=== PATIENT | female | born 1970 | race Caucasian/White ===

== ENCOUNTER 2019-03-19 22:30 | Inpatient (IN) ==
[2019-03-19] MEDS ORDERED: HYDROmorphone INJ 0.5 MG/0.5 ML SYR IV STA (23:08)
[2019-03-19] MEDS ORDERED: ONDANSETRON INJ 2 MG/ML 2 ML VIAL IV STA (23:08)
[2019-03-19] MEDS ORDERED: SODIUM CHLORIDE 0.9% 1000ML 1,000 ML IV SCH (23:15)
[2019-03-19 23:38] LABS: Basophils # (auto) 0.02 K/uL (0-0.2); Basophils % (auto) 0.2 %; Eosinophils # (auto) 0.04 K/uL (0-0.5); Eosinophils % (auto) 0.4 %; Hematocrit (blood only) 38.1 % (37-47); Hemoglobin 12.9 g/dL (12.0-16.0); Immature Granulocytes # (auto) 0.03 K/uL (0.00-0.02); Immature Granulocytes % (auto) 0.3 %; Lymphocytes # (auto) 2.24 K/uL (1.2-3.4); Lymphocytes % (auto) 20.3 %; Mean Corpuscular Hemoglobin 32.9 pg (25-34); Mean Corpuscular Hgb Conc 33.9 g/dL (32-36); Mean Corpuscular Volume 97.2 fL (80-100); Mean Platelet Volume 9.6 fL (7.4-10.4); Monocytes # (auto) 0.64 K/uL (0.11-0.59); Monocytes % (auto) 5.8 %; Neutrophils # (auto) 8.09 K/uL (1.4-6.5); Platelet Count 213 K/uL (130-400); RDW Coefficient of Variation 12.6 % (11.5-14.5); RDW Standard Deviation 44.9 fL (36.4-46.3); Red Blood Count 3.92 M/uL (4.2-5.4); White Blood Count 11.06 K/uL (4.8-10.8)
[2019-03-19 23:47] LABS: Partial Thromboplastin Ratio 0.9; Partial Thromboplastin Time 25.3 Seconds (21.0-31.0)
[2019-03-20] LABS: Alanine Aminotransferase 16 U/L (12-78); Albumin Level 3.5 gm/dl (3.4-5.0); Aspartate Aminotransferase 13 U/L (15-37); BUN Creatinine Ratio 14.8 (10-20); Blood Urea Nitrogen 13 mg/dl (7-18); Calcium 9.3 mg/dl (8.5-10.1); Carbon Dioxide 26 mmol/L (21-32); Chloride 108 mmol/L (98-107); Est GFR (African American) 90.7; Est GFR (Non-African American) 78.2; Glucose 95 mg/dl (70-99); Potassium 3.8 mmol/L (3.5-5.1); Sodium 139 mmol/L (136-145)
[2019-03-20 00:05] LABS: Albumin Globulin Ratio 0.9 (0.9-2); Alkaline Phosphatase 46 U/L (45-117); Bilirubin,Total 0.6 mg/dl (0.2-1); Globulin 4.1 gm/dl (2.5-4.0); Total Protein 7.6 gm/dl (6.4-8.2); Troponin I < 0.015 ng/ml (0-0.045)
[2019-03-20 00:41] LABS: Appearance Urine Clear (Clear); Bacteria Urine Automated 1+ (Negative); Bilirubin Urine Negative (Negative); Blood Urine 1+ (Negative); Color Urine Yellow; Epithelial Cell Urine Auto >30 /lpf (0-5); Glucose Urine UA Negative (Negative); Ketones Urine Negative (Negative); Leukocyte Esterase Urine Negative (Negative); Nitrite Urine Negative (Negative); Protein Urine Negative (Negative); RBC Urine Automated 0-4 /hpf (0-4); Urobilinogen Urine Negative (Negative); pH Urine 6.5 (4.5-7.5)
[2019-03-20] MEDS ORDERED: OPTIRAY 320 125ml IV PRN (01:38)
[2019-03-20] MEDS ORDERED: HYDROmorphone INJ 1 MG/ML SYRINGE IV STA ×2 (01:58→16:33)
[2019-03-20] MEDS ORDERED: LORazepam 0.5 MG/1 ML VIAL IV STA (02:01)
[2019-03-20] MEDS ORDERED: KETOROLAC TROMETHAMINE 15 MG/ML VIAL IV STA (02:01)
[2019-03-20] MEDS ORDERED: HEPARIN SOD 5,000 UNIT/0.5 ML VIAL ONE (03:00)
[2019-03-20] MEDS: HEPARIN SODIUM/DEXTROSE 25,000 UNITS/500 ML BAG IV SCH (03:05)
--- NOTE | 2019-03-20 03:07 | History & Physical Report ---
Date of Service March 20, 2019 Assessment & Plan (1) Bilateral pulmonary embolism: Possibly provoked by OCP Rule out lower extremity clot as source Medical telemetry IV heparin Defer discussion regarding oral agent for home between patient and AM provider. (Patient interested in NOAC.) LE venous Dopplers rule out DVT Stop OCP, alternative form of contraception to be discussed with PCP on follow- up DVT prophylaxis. Heparin Full code History of Present Illness Chief Complaint: Chest pain, S OB Primary Care Provider: Elke Mcneill MD History obtained from patient and records. No significant medical history. 2 days history of midsternal, subcostal pleuritic pain with shortness of breath and radiation to the back. No fever, no chills, no cough. No leg swelling. No recent travel/immobilization. At the ER, IV heparin started for pulmonary embolism on CT. No prior episodes, no known family history. Medical History as above Surgical History : Breast implant surgery, gynecologic procedures Family History : Breast cancer, DM Personal/Social history : Non-smoker, occasional EtOH intake, hospital employee Allergies Allergy/AdvReac Type Severity Reaction Status Date / Time No Known Allergies Allergy Unknown Verified 03/19/19 22:59 Home Medications Home Medications Medication Instructions Recorded Confirmed Type norgestrel-ethinyl estradiol 1 tab PO DAILY 03/19/19 03/19/19 History [Destiney (28)] Past Med/Surg History Medical History No pertinent past medical history Surgical History H/O eye surgery Family History Other No pertinent family history Social History Preferred Language: Uzbek Communication Ability: Effective Spa Manager/Esthetician Required: No Beliefs That Will Affect Care: None Current Living Situation: Spouse and Family Other Information That Helps Us Care for You: No Feels Safe at Home: Yes Safety Concerns: Feels Safe At This Time Smoking Status: Former smoker Tobacco Type: cigarettes ; Do You Dip or Chew Tobacco: No ; Second Hand Exposure: No ; Tobacco Cessation Education Requested by Patient: No Hx Alcohol Use: Yes Alcohol type: beer, wine and hard liquor Hx Substance Use: No Review of Systems Review of Systems: As per HPI, all 10 systems reviewed, all other ROS negative Physical Exam Physical Exam: GENERAL: Slightly uncomfortable, slightly anxious, looks younger for stated age, no respiratory distress SKIN: Normal color, warm HEENT: [place] palpebral conjunctivae, no ptosis, dry buccal mucosa NECK : Supple, no tenderness CHEST : Decreased breath sounds, no tenderness HEART : RRR, no obvious murmurs ABDOMEN: Soft, nontender EXTREMITIES : No LE swelling/tenderness, no other conspicuous deformities noted NEUROLOGIC : Coherent, no facial asymmetry, no other gross focality Results & Data Vital Signs (Past 12 Hours) Vital Signs Temp Pulse Pulse Resp BP BP Pulse Ox 03/20/19 03:03 88 18 115/75 95 03/20/19 02:00 95 H 23 132/85 98 03/20/19 01:30 86 21 116/78 94 03/20/19 01:00 84 17 111/73 96 03/20/19 00:57 83 18 97 03/20/19 00:56 88 22 115/70 97 03/20/19 00:30 87 19 96 03/20/19 00:08 96 03/19/19 23:30 91 H 23 99 03/19/19 23:22 94 H 24 98 03/19/19 23:07 91 H 22 97 03/19/19 22:34 36.6 C 129 H 20 160/85 H 99 Laboratory Results Laboratory Results WBC 11.06 K/uL (4.8-10.8) H 03/19/19 23:26 RBC 3.92 M/uL (4.2-5.4) L 03/19/19 23:26 Hgb 12.9 g/dL (12.0-16.0) 03/19/19 23:26 Hct 38.1 % (37-47) 03/19/19 23:26 MCV 97.2 fL (80-100) 03/19/19 23:26 MCH 32.9 pg (25-34) 03/19/19 23:26 MCHC 33.9 g/dL (32-36) 03/19/19 23:26 RDW Std Deviation 44.9 fL (36.4-46.3) 03/19/19 23:26 RDW Coeff of Alecia 12.6 % (11.5-14.5) 03/19/19 23:26 Plt Count 213 K/uL (130-400) 03/19/19 23:26 MPV 9.6 fL (7.4-10.4) 03/19/19 23:26 Immature Gran % (Auto) 0.3 % 03/19/19 23:26 Neut % (Auto) 73.0 % 03/19/19 23:26 Lymph % (Auto) 20.3 % 03/19/19 23:26 [place] % (Auto) 5.8 % 03/19/19 23:26 Eos % (Auto) 0.4 % 03/19/19 23:26 Baso % (Auto) 0.2 % 03/19/19 23: Immature Gran # (Auto) 0.03 K/uL (0.00-0.02) H 03/19/19 23:26 Neut # (Auto) 8.09 K/uL (1.4-6.5) H 03/19/19 23:26 Lymph # (Auto) 2.24 K/uL (1.2-3.4) 03/19/19 23:26 [place] # (Auto) 0.64 K/uL (0.11-0.59) H 03/19/19 23:26 Eos # (Auto) 0.04 K/uL (0-0.5) 03/19/19 23: Baso # (Auto) 0.02 K/uL (0-0.2) 03/19/19 23:26 PT 10.0 Seconds (9.0-12.0) 03/19/19 23: INR 1.0 (0.9-1.1) 03/19/19 23:26 APTT 25.3 Seconds (21.0-31.0) 03/19/19 23: PTT Ratio 0.9 03/19/19 23:26 Sodium 139 mmol/L (136-145) 03/19/19 23:26 Potassium 3.8 mmol/L (3.5-5.1) 03/19/19 23:26 Chloride 108 mmol/L (98-107) H 03/19/19 23:26 Carbon Dioxide 26 mmol/L (21-32) 03/19/19 23:26 Anion Gap 4.0 (3-11) 03/19/19 23:26 BUN 13 mg/dl (7-18) 03/19/19 23:26 Creatinine 0.87 mg/dl (0.6-1.2) 03/19/19 23:26 Est Cr Clr Drug Dosing Not Reportable 03/19/19 23:26 Est GFR ( Amer) 90.7 03/19/19 23:26 Est GFR (Non-Af Amer) 78.2 03/19/19 23:26 BUN/Creatinine Ratio 14.8 (10-20) 03/19/19 23:26 Glucose 95 mg/dl (70-99) 03/19/19 23:26 Calcium 9.3 mg/dl (8.5-10.1) 03/19/19 23:26 Magnesium 2.0 mg/dl (1.8-2.4) 03/19/19 23:26 Total Bilirubin 0.6 mg/dl (0.2-1) 03/19/19 23:26 AST 13 U/L (15-37) L 03/19/19 23:26 ALT 16 U/L (12-78) 03/19/19 23:26 Alkaline Phosphatase 46 U/L (45-117) 03/19/19 23:26 Troponin I < 0.015 ng/ml (0-0.045) 03/19/19 23:26 Total Protein 7.6 gm/dl (6.4-8.2) 03/19/19 23:26 Albumin 3.5 gm/dl (3.4-5.0) 03/19/19 23:26 Globulin 4.1 gm/dl (2.5-4.0) H 03/19/19 23:26 Albumin/Globulin Ratio 0.9 (0.9-2) 03/19/19 23:26 Urine Color Yellow 03/20/19 00:06 Urine Appearance Clear (Clear) 03/20/19 00:06 Urine pH 6.5 (4.5-7.5) 03/20/19 00:06 Ur Specific [place] 1.030 (1.000-1.030) 03/20/19 00:06 Urine Protein Negative (Negative) 03/20/19 00:06 Urine Glucose (UA) Negative (Negative) 03/20/19 00:06 Urine Ketones Negative (Negative) 03/20/19 00:06 Urine Blood 1+ (Negative) H 03/20/19 00:06 Urine Nitrite Negative (Negative) 03/20/19 00:06 Urine Bilirubin Negative (Negative) 03/20/19 00:06 Urine Urobilinogen Negative (Negative) 03/20/19 00:06 Ur Leukocyte Esterase Negative (Negative) 03/20/19 00:06 Urine WBC (Auto) 1-5 /hpf (0-5) 03/20/19 00:06 Urine RBC (Auto) 0-4 /hpf (0-4) 03/20/19 00:06 U Hyaline Cast (Auto) 1-5 /lpf (0-5) 03/20/19 00:06 U Epithel Cells (Auto) >30 /lpf (0-5) H 03/20/19 00:06 Urine Bacteria (Auto) 1+ (Negative) H 03/20/19 00:[address] chest initial read bilateral breast prostheses, negative mediastinal/axillary lymphadenopathy. Subcentimeter left greater than right hilar lymph nodes. Main pulmonary artery normal caliber. Right greater than the left lower lung pulmonary embolus. No RV strain. EKG as per my interpretation: Rate 95, normal axis, no ischemia, low voltage
[2019-03-20] MEDS ORDERED: ACETAMINOPHEN 325 MG TAB PO PRN (03:46)
[2019-03-20] MEDS ORDERED: LORazepam 0.25 MG/0.5 ML VIAL IV PRN (03:46)
[2019-03-20] MEDS ORDERED: MoRPHine SULFATE 2 MG/ML CARP IV PRN (03:46)
[2019-03-20] MEDS ORDERED: NSS + 20MEQ KCL 20 MEQ/1,000 ML BAG IV ONE (03:46)
[2019-03-20] MEDS: PROMETHAZINE HCL 12.5 MG in SODIUM CHLORIDE 0.9% 50 ML IV PRN ×3 (04:01→16:12)
--- NOTE | 2019-03-20 07:10 | Ultrasound Report ---
BILATERAL LOWER EXTREMITY VENOUS DOPPLER HISTORY: Pulmonary embolus. Evaluate for DVT. COMPARISON STUDY: None. FINDINGS: There is normal compressibility, flow, and augmentation within the bilateral lower extremit y deep venous systems. IMPRESSION: No DVT within the right or left lower extremity. Electronically signed by: Palomo Patel M.D. 03/20/2019 7:08 AM
--- NOTE | 2019-03-20 07:21 | Emergency Department Note ---
Entered by Fausto Smalls acting as a scribe for Teresa Rodríguez MD History of Present Illness General Chief complaint: Rib Injury/Pain Stated complaint: SEVERE RIB PAIN, SIDE PAIN Time Seen by Provider: 03/19/19 23:06 Source: patient History of Present Illness Onset (ago): day(s) (last night) Location: chest (and side) and right Severity: severe Pain Consistency: + constant Maximum Pain Intensity: 5 Exacerbated By: + movement and + other (deep breathing) Associated symptoms: + denies other symptoms (abdominal pain, swelling in her legs, pain in her legs) The patient is a 49 y/o female who presents to the ED w/ CC of constant, severe, right sided chest/side pain beginning last night. The patient states her symptoms started in the middle of the night last night and worsen with deep breathing. She reports she tried taking ibuprofen to help her sleep. The patient notes today at work she was not able to yawn or breathe in deeply because her symptoms increased. She states she went to sleep this evening and then rolled over in bed. The patient reports her symptoms increased severely and moved from her right inner chest to the bottom of her right rib cage. She notes she does take control. She denies abdominal pain, swelling in her legs, pain in her legs, a pertinent past medical history, recent long trips, and a history of smoking. The patient denies increased pain when she touches her side. She notes her PCP is with [facility]. 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 and A total of 10 systems reviewed and were otherwise negative Physical Exam Vital Signs Vital Signs - 24 hr 03/19/19 22:31 03/19/19 22:34 03/19/19 23:07 Temperature 36.6 C Temperature Source Oral Pulse Rate 129 H 91 H Pulse Rate [Finger] Pulse Rate from SpO2 Sensor Pulse Rhythm Regular Respiratory Rate 20 22 Blood Pressure 160/85 H Blood Pressure [Right Arm] Blood Pressure Mean 110 Blood Pressure Mean [Right Arm] Blood Pressure Position Sitting Pulse Oximetry 99 97 Oxygen Delivery Method Room Air Room Air Room Air Sepsis Recent Fever Within 48 Hours No Sepsis New/Unexplained Change in Mental Status No Sepsis Action Taken by Nursing No Action Required 03/19/19 23:22 03/19/19 23:30 03/20/19 00:08 Temperature Temperature Source Pulse Rate 94 H 91 H Pulse Rate [Finger] Pulse Rate from SpO2 Sensor 96 H 91 H 82 Pulse Rhythm Respiratory Rate 24 23 Blood Pressure Blood Pressure [Right Arm] Blood Pressure Mean Blood Pressure Mean [Right Arm] Blood Pressure Position Pulse Oximetry 98 99 96 Oxygen Delivery Method Sepsis Recent Fever Within 48 Hours Sepsis New/Unexplained Change in Mental Status Sepsis Action Taken by Nursing 03/20/19 00:30 03/20/19 00:56 03/20/19 00:57 Temperature Temperature Source Pulse Rate 87 88 83 Pulse Rate [Finger] Pulse Rate from SpO2 Sensor 89 87 84 Pulse Rhythm Respiratory Rate 19 22 18 Blood Pressure 115/70 Blood Pressure [Right Arm] Blood Pressure Mean 81 Blood Pressure Mean [Right Arm] Blood Pressure Position Pulse Oximetry 96 97 97 Oxygen Delivery Method Sepsis Recent Fever Within 48 Hours Sepsis New/Unexplained Change in Mental Status Sepsis Action Taken by Nursing 03/20/19 01:00 03/20/19 01:30 03/20/19 02:00 Temperature Temperature Source Pulse Rate 84 86 95 H Pulse Rate [Finger] Pulse Rate from SpO2 Sensor 86 86 98 H Pulse Rhythm Respiratory Rate 17 21 23 Blood Pressure 111/73 116/78 132/85 Blood Pressure [Right Arm] Blood Pressure Mean 82 87 101 Blood Pressure Mean [Right Arm] Blood Pressure Position Pulse Oximetry 96 94 98 Oxygen Delivery Method Sepsis Recent Fever Within 48 Hours Sepsis New/Unexplained Change in Mental Status Sepsis Action Taken by Nursing 03/20/19 02:30 03/20/19 03:00 03/20/19 03:03 Temperature Temperature Source Pulse Rate 81 86 Pulse Rate [Finger] 88 Pulse Rate from SpO2 Sensor 82 86 Pulse Rhythm Respiratory Rate 16 13 18 Blood Pressure 107/74 115/75 Blood Pressure [Right Arm] 115/75 Blood Pressure Mean 77 84 Blood Pressure Mean [Right Arm] 88 Blood Pressure Position Pulse Oximetry 96 96 95 Oxygen Delivery Method Room Air Sepsis Recent Fever Within 48 Hours Sepsis New/Unexplained Change in Mental Status Sepsis Action Taken by Nursing Vital signs reviewed. General: Well-appearing 49 y/o female, splinting the lower ribs - right greater than left. HEENT: No scleral icterus, PERRLA, neck supple. Atraumatic. Cardiovascular: Tachycardic rate and regular rhythm, no extra sounds. Pulmonary: Clear to auscultation bilaterally, normal work of breathing. Pain with deep inspiration. Examination limited secondary to splinting. Abdomen: Soft, nontender, nondistended, positive bowel sounds. Musculoskeletal: Atraumatic, no peripheral edema. Neurologic: Patient awake alert and oriented x 3 Skin: Warm, dry, no rash Course Course 2308: Past medical records reviewed. The patient was evaluated in room A12B. A complete history and physical exam was performed. 0151: Upon reevaluation, the patient is resting comfortably. I discussed laboratory and radiographic results with her. She verbalized agreement of the treatment plan. The patient will be evaluated for further management and care. 0216: I reviewed the patient's case with Dr. Conway, [facility] Hospitalist. He will evaluate the patient for further management. Administered Medications Discontinued Medications Apixaban (Eliquis) 10 mg PO BID DENISE Stop: 03/28/19 09:01 Last Admin: 03/22/19 07:55 Dose: 10 mg Documented by: [id number] Admin: 03/21/19 21:00 Dose: 10 mg Documented by: [id number] Heparin Sodium (Porcine) (Heparin Sodium (Porcine)) Confirm Administered Dose 5,000 units .ROUTE .STK-MED ONE Stop: 03/20/19 03:01 Last Admin: 03/20/19 03:04 Dose: 5,000 units Documented by: [id number] Cosigned by: [id number] Heparin Sodium/Dextrose () 1 ea IV NOW STA; Protocol Stop: 03/20/19 01:59 Last Admin: 03/20/19 03:07 Dose: Not Given Documented by: [id number] Hydromorphone HCl (Dilaudid) 0.5 mg IV NOW Stop: 03/19/19 23:09 Last Admin: 03/19/19 23:33 Dose: 0.5 mg Documented by: [id number] Hydromorphone HCl (Dilaudid) 1 mg IV NOW Stop: 03/20/19 01:59 Last Admin: 03/20/19 02:38 Dose: 1 mg Documented by: [id number] Hydromorphone HCl (Dilaudid) 0.5 mg IV NOW Stop: 03/20/19 11:52 Last Admin: 03/20/19 11:58 Dose: 0.5 mg Documented by: [id number] Hydromorphone HCl (Dilaudid) 1 mg IV Q4H PRN PRN Reason: Pain Stop: 04/03/19 13:02 Last Admin: 03/20/19 14:13 Dose: 1 mg Documented by: [id number] Hydromorphone HCl (Dilaudid) 1 mg IV NOW STA Stop: 03/20/19 16:34 Last Admin: 03/20/19 16:41 Dose: 1 mg Documented by: [id number] Hydromorphone HCl (Dilaudid) 2 mg IV Q3H PRN PRN Reason: Pain Stop: 04/03/19 13:02 Last Admin: 03/21/19 10:44 Dose: 2 mg Documented by: [id number] Admin: 03/21/19 03:06 Dose: 2 mg Documented by: [id number] Admin: 03/20/19 22:31 Dose: 2 mg Documented by: [id number] Admin: 03/20/19 18:50 Dose: 2 mg Documented by: [id number] Sodium Chloride (Nss 1000ml) 1,000 mls @ 999 mls/hr IV .Q1H1M DENISE Stop: 03/20/19 00:15 Last Infusion: 03/20/19 03:11 Dose: 0 mls/hr Documented by: [id number] Admin: 03/19/19 23:34 Dose: 999 mls/hr Documented by: [id number] Heparin Sodium/Dextrose (Heparin Sodium/Dextrose) 25,000 units in 500 mls @ 22 mls/hr IV .[id number] [facility]; Protocol Stop: 04/19/19 01:59 Last Titration: 03/21/19 20:00 Dose: 0 units/hr, 0 mls/hr Documented by: [id number] Cosigned by: [id number] Titration: 03/21/19 14:57 Dose: 1,100 units/hr, 22 mls/hr Documented by: [id number] Cosigned by: [id number] Titration: 03/21/19 14:57 Dose: 1,100 units/hr, 22 mls/hr Documented by: [id number] Cosigned by: [id number] Titration: 03/21/19 06:57 Dose: 1,100 units/hr, 22 mls/hr Documented by: [id number] Cosigned by: [id number] Titration: 03/21/19 03:21 Dose: 1,100 units/hr, 22 mls/hr Documented by: [id number] Cosigned by: [id number] Titration: 03/21/19 03:00 Dose: 0 units/hr, 0 mls/hr Documented by: [id number] Cosigned by: [id number] Admin: 03/21/19 02:34 Dose: 1,100 units/hr, 22 mls/hr Documented by: [id number] Cosigned by: [id number] Titration: 03/21/19 01:49 Dose: 1,100 units/hr, 22 mls/hr Documented by: [id number] Cosigned by: [id number] Titration: 03/20/19 23:16 Dose: 1,100 units/hr, 22 mls/hr Documented by: [id number] Cosigned by: [id number] Titration: 03/20/19 19:01 Dose: 1,100 units/hr, 22 mls/hr Documented by: [id number] Cosigned by: [id number] Titration: 03/20/19 15:02 Dose: 1,100 units/hr, 22 mls/hr Documented by: [id number] Cosigned by: [id number] Titration: 03/20/19 10:21 Dose: 1,100 units/hr, 22 mls/hr Documented by: [id number] Cosigned by: [id number] Titration: 03/20/19 07:12 Dose: 1,100 units/hr, 22 mls/hr Documented by: [id number] Cosigned by: [id number] Titration: 03/20/19 03:58 Dose: 1,100 units/hr, 22 mls/hr Documented by: [id number] Cosigned by: [id number] Admin: 03/20/19 03:05 Dose: 1,100 units/hr, 22 mls/hr Documented by: [id number] Cosigned by: [id number] Lorazepam (Ativan) 0.5 mg in 1 mls @ 1 mls/min IV NOW STA Stop: 03/20/19 02:02 Last Admin: 03/20/19 02:38 Dose: 1 mls/min Documented by: [id number] Potassium Chloride/Sodium Chloride (Normal Saline W/20 Meq Kcl) 20 meq in 1,000 mls @ 60 mls/hr IV .[id number] ONE Stop: 03/20/19 20:25 Last Infusion: 03/20/19 22:36 Dose: 0 mls/hr Documented by: [id number] Admin: 03/20/19 04:22 Dose: 60 mls/hr Documented by: [id number] Promethazine HCl 12.5 mg/ (Sodium Chloride) 50.5 mls @ 202 mls/hr IV Q6H PRN PRN Reason: Nausea And Vomiting Stop: 04/19/19 03:45 Last Infusion: 03/21/19 15:55 Dose: 0 mls/hr Documented by: [id number] Admin: 03/21/19 15:37 Dose: 202 mls/hr Documented by: [id number] Infusion: 03/21/19 03:20 Dose: 0 mls/hr Documented by: [id number] Admin: 03/21/19 02:59 Dose: 202 mls/hr Documented by: [id number] Infusion: 03/20/19 16:36 Dose: 0 mls/hr Documented by: [id number] Admin: 03/20/19 16:12 Dose: 202 mls/hr Documented by: [id number] Infusion: 03/20/19 04:20 Dose: 0 mls/hr Documented by: [id number] Admin: 03/20/19 04:01 Dose: 202 mls/hr Documented by: [id number] Influenza Virus Vaccine Quadrival (Flucelvax Quad Vaccine) 0.5 ml IM .ONCE ONE Stop: 03/20/19 05:16 Last Admin: 03/22/19 09:27 Dose: Not Given Documented by: [id number] Ioversol (Optiray 320 125ml) 117 ml IV ONCE PRN PRN Reason: Interaction Checking Stop: 03/24/19 01:37 Last Admin: 03/20/19 01:39 Dose: 1 ml Documented by: [id number] Ketorolac Tromethamine (Toradol) 15 mg IV NOW STA Stop: 03/20/19 02:02 Last Admin: 03/20/19 02:37 Dose: 15 mg Documented by: [id number] Lidocaine (Lidoderm 5%) 1 patch TD Q24H [facility] Stop: 04/19/19 18:29 Last Admin: 03/21/19 18:24 Dose: 1 patch Documented by: [id number] Admin: 03/20/19 18:33 Dose: 1 patch Documented by: [id number] Miscellaneous (Remove Lidoderm Patch) 1 ea N/A DAILY@0630 [facility] Stop: 04/20/19 06:29 Last Admin: 03/22/19 06:29 Dose: 1 ea Documented by: [id number] Admin: 03/21/19 06:09 Dose: 1 ea Documented by: [id number] Miscellaneous (Stop Order) 1 ea N/A TODAY@1930 [facility] Stop: 03/21/19 20:59 Last Admin: 03/21/19 20:00 Dose: 1 ea Documented by: [id number] Morphine Sulfate (Morphine Sulfate) 2 mg IV Q3H PRN PRN Reason: Pain Stop: 04/03/19 03:45 Last Admin: 03/20/19 11:19 Dose: 2 mg Documented by: [id number] Ondansetron HCl (Zofran) 4 mg IV NOW STA Stop: 03/19/19 23:09 Last Admin: 03/19/19 23:33 Dose: 4 mg Documented by: [id number] Ondansetron HCl (Zofran) 4 mg IV Q6H PRN PRN Reason: Nausea Stop: 04/19/19 18:25 Last Admin: 03/21/19 10:44 Dose: 4 mg Documented by: [id number] Admin: 03/20/19 22:23 Dose: 4 mg Documented by: [id number] Oxycodone HCl (Roxicodone Immediate Rel) 5 mg PO Q6H PRN PRN Reason: Pain Stop: 04/03/19 13:02 Last Admin: 03/22/19 07:52 Dose: 5 mg Documented by: [id number] Admin: 03/21/19 21:26 Dose: 5 mg Documented by: [id number] Admin: 03/21/19 15:36 Dose: 5 mg Documented by: [id number] Admin: 03/21/19 08:15 Dose: 5 mg Documented by: [id number] Admin: 03/20/19 15:18 Dose: 5 mg Documented by: [id number] Tramadol HCl (Ultram) 25 - 50 mg PO Q4H PRN PRN Reason: Pain Stop: 04/19/19 03:45 Last Admin: 03/21/19 07:14 Dose: 25 mg Documented by: [id number] Admin: 03/20/19 19:51 Dose: 50 mg Documented by: [id number] Admin: 03/20/19 12:37 Dose: 50 mg Documented by: [id number] Critical Care Time Critical Care Time: Yes Total Critical Care Time: 30 I have personally spent 30 minutes of critical care time in the direct management of this patient. This includes bedside care, interpretation of diagnostic studies, and testing, discussion with consultants, patient, and family members, and other required patient management activities. This 30 minutes is in excess of all separately billable procedures. Medical Decision Making Differential Diagnosis Differential diagnoses includes but is not limited to pneumonia, bronchitis, COPD/Asthma exacerbation, pneumothorax, pulmonary embolism, congestive heart failure, acute coronary syndrome Medical Records Attestation: I reviewed the patient's medical records. Home Medications Current Medication List: was personally reviewed by hi Laboratory Data Attestation: I reviewed the patient's lab results. Result diagrams: 03/22/19 06:26 03/22/19 06:26 Lab Results 03/19/19 03/19/19 03/19/19 Range/Units 23:26 23:26 23:26 WBC 11.06 H (4.8-10.8) K/uL RBC 3.92 L (4.2-5.4) M/uL Hgb 12.9 (12.0-16.0) g/dL Hct 38.1 (37-47) % MCV 97.2 (80-100) fL MCH 32.9 (25-34) pg MCHC 33.9 (32-36) g/dL RDW Std Deviation 44.9 (36.4-46.3) fL RDW Coeff of Alecia 12.6 (11.5-14.5) % Plt Count 213 (130-400) K/uL MPV 9.6 (7.4-10.4) fL Immature Gran % (Auto) 0.3 % Neut % (Auto) 73.0 % Lymph % (Auto) 20.3 % [place] % (Auto) 5.8 % Eos % (Auto) 0.4 % Baso % (Auto) 0.2 % Immature Gran # (Auto) 0.03 H (0.00-0.02) K/uL Neut # (Auto) 8.09 H (1.4-6.5) K/uL Lymph # (Auto) 2.24 (1.2-3.4) K/uL [place] # (Auto) 0.64 H (0.11-0.59) K/uL Eos # (Auto) 0.04 (0-0.5) K/uL Baso # (Auto) 0.02 (0-0.2) K/uL PT 10.0 (9.0-12.0) Seconds INR 1.0 (0.9-1.1) APTT 25.3 (21.0-31.0) Seconds PTT Ratio 0.9 Sodium 139 (136-145) mmol/L Potassium 3.8 (3.5-5.1) mmol/L Chloride 108 H (98-107) mmol/L Carbon Dioxide 26 (21-32) mmol/L Anion Gap 4.0 (3-11) BUN 13 (7-18) mg/dl Creatinine 0.87 (0.6-1.2) mg/dl Est Cr Clr Drug Dosing Not Reportable Est GFR ( Amer) 90.7 Est GFR (Non-Af Amer) 78.2 BUN/Creatinine Ratio 14.8 (10-20) Glucose 95 (70-99) mg/dl Calcium 9.3 (8.5-10.1) mg/dl Magnesium 2.0 (1.8-2.4) mg/dl Total Bilirubin 0.6 (0.2-1) mg/dl AST 13 L (15-37) U/L ALT 16 (12-78) U/L Alkaline Phosphatase 46 (45-117) U/L Troponin I < 0.015 (0-0.045) ng/ml Total Protein 7.6 (6.4-8.2) gm/dl Albumin 3.5 (3.4-5.0) gm/dl Globulin 4.1 H (2.5-4.0) gm/dl Albumin/Globulin Ratio 0.9 (0.9-2) Urine Color Urine Appearance (Clear) Urine pH (4.5-7.5) Ur Specific Circle (1.000-1.030) Urine Protein (Negative) Urine Glucose (UA) (Negative) Urine Ketones (Negative) Urine Blood (Negative) Urine Nitrite (Negative) Urine Bilirubin (Negative) Urine Urobilinogen (Negative) Ur Leukocyte Esterase (Negative) Urine WBC (Auto) (0-5) /hpf Urine RBC (Auto) (0-4) /hpf U Hyaline Cast (Auto) (0-5) /lpf U Epithel Cells (Auto) (0-5) /lpf Urine Bacteria (Auto) (Negative) 03/20/19 Range/Units 00:06 WBC (4.8-10.8) K/uL RBC (4.2-5.4) M/uL Hgb (12.0-16.0) g/dL Hct (37-47) % MCV (80-100) fL MCH (25-34) pg MCHC (32-36) g/dL RDW Std Deviation (36.4-46.3) fL RDW Coeff of Alecia (11.5-14.5) % Plt Count (130-400) K/uL MPV (7.4-10.4) fL Immature Gran % (Auto) % Neut % (Auto) % Lymph % (Auto) % [place] % (Auto) % Eos % (Auto) % Baso % (Auto) % Immature Gran # (Auto) (0.00-0.02) K/uL Neut # (Auto) (1.4-6.5) K/uL Lymph # (Auto) (1.2-3.4) K/uL [place] # (Auto) (0.11-0.59) K/uL Eos # (Auto) (0-0.5) K/uL Baso # (Auto) (0-0.2) K/uL PT (9.0-12.0) Seconds INR (0.9-1.1) APTT (21.0-31.0) Seconds PTT Ratio Sodium (136-145) mmol/L Potassium (3.5-5.1) mmol/L Chloride (98-107) mmol/L Carbon Dioxide (21-32) mmol/L Anion Gap (3-11) BUN (7-18) mg/dl Creatinine (0.6-1.2) mg/dl Est Cr Clr Drug Dosing Est GFR ( Amer) Est GFR (Non-Af Amer) BUN/Creatinine Ratio (10-20) Glucose (70-99) mg/dl Calcium (8.5-10.1) mg/dl Magnesium (1.8-2.4) mg/dl Total Bilirubin (0.2-1) mg/dl AST (15-37) U/L ALT (12-78) U/L Alkaline Phosphatase (45-117) U/L Troponin I (0-0.045) ng/ml Total Protein (6.4-8.2) gm/dl Albumin (3.4-5.0) gm/dl Globulin (2.5-4.0) gm/dl Albumin/Globulin Ratio (0.9-2) Urine Color Yellow Urine Appearance Clear (Clear) Urine pH 6.5 (4.5-7.5) Ur Specific Circle 1.030 (1.000-1.030) Urine Protein Negative (Negative) Urine Glucose (UA) Negative (Negative) Urine Ketones Negative (Negative) Urine Blood 1+ H (Negative) Urine Nitrite Negative (Negative) Urine Bilirubin Negative (Negative) Urine Urobilinogen Negative (Negative) Ur Leukocyte Esterase Negative (Negative) Urine WBC (Auto) 1-5 (0-5) /hpf Urine RBC (Auto) 0-4 (0-4) /hpf U Hyaline Cast (Auto) 1-5 (0-5) /lpf U Epithel Cells (Auto) >30 H (0-5) /lpf Urine Bacteria (Auto) 1+ H (Negative) Imaging Data Attestation: I personally reviewed and interpreted this imaging study as follows : My Impression: XR chest 1V portable: Normal silhouette. Normal mediastinum. No failure. Radiologist's Impression: Radiology results as stated below per my review and the [facility] radiologist's interpretation: CTA CHEST: Findings: Soft tissues: Thoracic inlet, bilateral legs all are unremarkable. Bilateral breast prosthesis is seen. Negative for mediastinal axillary lymphadenopathy. Subcentimeter left greater than right hilar nodes are seen. Vascular: Heart and aorta are unremarkable. Normal caliber of the aorta. Main pulmonary artery has normal caliber. Thrombus and filling defect is seen in the right lower lobe pulmonary arteries consistent with pulmonary embolus. Filling defect also seen in the left lower lobe subsegmental pulmonary arteries. Upper abdomen: No focal finding. Lungs: Greater than left basilar atelectasis. Bones: No lytic or blastic bony lesion. Impression: 1. Right greater than left lower lung pulmonary embolus. Radiologist: Katia Cochran MD Study ready at 00:13 and initial results transmitted at 01:49 ECG Data Attestation: I personally reviewed and interpreted this ECG as follows: Indication: + SOB/dyspnea Rate (beats per minute): 93 Rhythm: + normal sinus ECG ST segments: no ST depression and no ST elevation ECG Findings: + Other (QTc of 447); no PACs and no PVCs Blood Pressure Blood Pressure Findings: Elevated blood pressure Blood Pressure Disposition: further management by hospitalist MDM Narrative This pt was evaluated and appeared to be in no distress. IV access was obtained and lab work was drawn. PT was placed on the cardiac cath lab manager and noted to be tachycardic. PT was in significant pain, given IV zofran and several doses of IV dilaudid with minimal relief. PT was given a small dose 15 mg IV toradol for additional pain control. IVF were given. CTA of chest was ordered to r/o PE, this study is positive for bilateral PE without heart strain. Pt was informed of the findings and started on IV heparin infusion. Case was d/w hospitalist service for further management. Impression & Plan Bilateral pulmonary embolism Discharge Plan Visit Data *Final* Discharge Date/Time: 03/20/19 03:32 Chief Complaint: Rib Injury/Pain Stated Complaint: SEVERE RIB PAIN, SIDE PAIN ED Provider: Teresa Rodríguez Discharge Problem: Bilateral pulmonary embolism Patient Disposition: Being Evaluated by Hospitalist Discharge Instructions Interventions: ED Discharge Assessment Last Done: 03/20/19 03:32 The scribe's documentation has been prepared under my direction and personally reviewed by me in its entirety. I confirm that the note above accurately reflects all work, treatment, procedures, and medical decision making performed by me.
--- NOTE | 2019-03-20 07:37 | CT Scan Report ---
CHEST CTA for PULMONARY ARTERIES CT DOSE: 240.63 mGy.cm HISTORY: Dyspnea TECHNIQUE: Multiaxial CT images of the chest were performed following the intravenous administration of contrast to evaluate the pulmonary arteries. Maximal intensity projection images were also obtaine d. A dose lowering technique was utilized adhering to the principles of ALARA. COMPARISON STUDY: None. FINDINGS: Normal caliber thoracic aorta with no evidence for dissection. No mediastinal lymphadenopat hy. A single enlarged left hilar lymph node measuring 1.1 cm. The heart is normal in size. No pleural or pericardial effusions. Bilateral breast implants are noted. No evidence for right-sided heart str ain. Left lower lobe subsegmental pulmonary emboli are noted. There are also multiple pulmonary embol i involving the segmental branches of the right middle lobe and right lower lobe. No suspicious lytic are blastic osseous lesions. The visualized liver and spleen are unremarkable. No pneumothorax. Wedg e-shaped groundglass airspace opacities within the base of the bilateral lower lobes, right greater t greer left. These likely represent pulmonary infarcts. IMPRESSION: 1. Multiple bilateral lower lobe and right middle lobe pulmonary emboli. There are associated wedge-s haped opacities within the base of the bilateral lower lobes consistent with pulmonary infarcts. 2. A single mildly enlarged left hilar lymph node. Electronically signed by: Palomo Patel M.D. 03/20/2019 7:35 AM
--- NOTE | 2019-03-20 08:14 | XRay Report ---
XR chest 1V portable HISTORY: Dyspnea COMPARISON: None. FINDINGS: The lungs are clear. Cardiac silhouette is normal in size. No pleural effusions. No pneumot horax. IMPRESSION: No acute process. Electronically signed by: Palomo Patel M.D. 03/20/2019 8:13 AM
[2019-03-20 09:33] LABS: Basophils # (auto) 0.01 K/uL (0-0.2); Basophils % (auto) 0.1 %; Eosinophils # (auto) 0.01 K/uL (0-0.5); Eosinophils % (auto) 0.1 %; Hematocrit (blood only) 35.2 % (37-47); Hemoglobin 11.7 g/dL (12.0-16.0); Immature Granulocytes # (auto) 0.01 K/uL (0.00-0.02); Immature Granulocytes % (auto) 0.1 %; Lymphocytes # (auto) 1.28 K/uL (1.2-3.4); Mean Corpuscular Hemoglobin 32.5 pg (25-34); Mean Corpuscular Hgb Conc 33.2 g/dL (32-36); Mean Corpuscular Volume 97.8 fL (80-100); Mean Platelet Volume 9.6 fL (7.4-10.4); Monocytes % (auto) 6.3 %; Neutrophils # (auto) 6.17 K/uL (1.4-6.5); Neutrophils % (auto) 77.4 %; Platelet Count 195 K/uL (130-400); RDW Coefficient of Variation 12.6 % (11.5-14.5); RDW Standard Deviation 45.2 fL (36.4-46.3); White Blood Count 7.98 K/uL (4.8-10.8)
[2019-03-20 09:49] LABS: BUN Creatinine Ratio 11.8 (10-20); Calcium 8.4 mg/dl (8.5-10.1); Creatinine Clr Calc Pharmacy 93.2 ml/min; Est GFR (African American) 115.9; Potassium 3.9 mmol/L (3.5-5.1)
[2019-03-20 10:12] LABS: Partial Thromboplastin Ratio 1.7
[2019-03-20 10:14] LABS: Partial Thromboplastin Time 46.6 Seconds (21.0-31.0)
[2019-03-20] MEDS ORDERED: HYDROmorphone INJ 0.5 MG/0.5 ML SYR IV STA (11:51)
[2019-03-20] MEDS: TRAMADOL HCL 50 MG TABLET PO PRN ×2 (12:37→19:51)
[2019-03-20] MEDS ORDERED: HYDROmorphone INJ 1 MG/ML SYRINGE IV PRN (13:03)
--- NOTE | 2019-03-20 13:51 | Hospitalist Progress Note ---
Date of Service March 20, 2019 Assessment & Plan (1) Bilateral pulmonary embolism: Present on admission with severe right sided chest pain and SOB Possibly provoked by OCP CTA chest showed multiple bilateral lower lobe and right middle lobe pulmonary emboli. There are associated wedge-shaped opacities within the base of the bilateral lower lobes consistent with pulmonary infarcts. Possibly provoked by OCP Doppler B/L LE showed no DVT within the right or left lower extremity. Continue heparin drip for now Discussed with patient btw DOACs and warfarin Pt is interested on the DOAC. Major side effect discussed with patient such as abnormal bleeding Will check with pharmacy about the course for the DOACs Starting on Dilaudid, will alternate with oxycodone ECHO pending to check for RV strain Case discussed with pulm (No official consult placed) for the pulmonary infarcts as per pulm, no change in the management. Will d/c OCP on discharge, Will defer to PCP to prescribe alternative OCP DVT prophylaxis on Heparin drip Code STATUS Full code Subjective Pt was seen and examined Sitting in bed complaint of right side chest pain Pt said that pain is worst with deep breathing She said that the pain med did not help Denies any palpitation nad SOB Physical Exam Physical Exam: General- No acute distress Head- atraumatic Eyes- PERRL, EOMI, ENT- oropharynx clear Neck- supple, no JVD Lungs- clear to auscultation Heart- regular rhythm; no murmur Abdomen- normal bowel sounds, soft, nontender Extremities- no calf tenderness Neuro- alert, oriented x 3; PERRL, EOMI; no facial palsy; no dysarthria Skin- warm & dry Results & Data Vital Signs (Past 12 Hours) Vital Signs Temp Pulse Pulse Resp BP BP BP 03/20/19 12:35 99 H 143/82 H 03/20/19 11:19 36.6 C 89 18 129/83 03/20/19 08:00 61 03/20/19 07:00 36.9 C 87 18 105/69 03/20/19 04:31 71 03/20/19 04:05 36.6 C 94 H 14 94/59 L 03/20/19 03:03 88 18 115/75 03/20/19 03:00 86 13 115/75 03/20/19 02:30 81 16 107/74 03/20/19 02:00 95 H 23 132/85 Pulse Ox 03/20/19 12:35 03/20/19 11:19 03/20/19 08:00 03/20/19 07:00 98 03/20/19 04:31 03/20/19 04:05 98 03/20/19 03:03 95 03/20/19 03:00 96 03/20/19 02:30 96 03/20/19 02:00 98
[2019-03-20] MEDS: OXYCODONE HCL IR 5 MG TAB (IMMEDIATE RELEASE) PO PRN (15:18)
[2019-03-20] MEDS ORDERED: NALOXONE HCL 0.4 MG/1 ML VIAL/CARP IV PRN (18:26)
[2019-03-20] MEDS: LIDOCAINE 5% 1 PATCH TD SCH (18:33)
[2019-03-20] MEDS: HYDROmorphone INJ 2 MG/ML SYR/VIAL IV PRN ×2 (18:50→22:31)
[2019-03-20] MEDS: ONDANSETRON INJ 2 MG/ML 2 ML VIAL IV PRN (22:23)
[2019-03-21] MEDS: HEPARIN SODIUM/DEXTROSE 25,000 UNITS/500 ML BAG IV SCH (02:34)
[2019-03-21] MEDS: PROMETHAZINE HCL 12.5 MG in SODIUM CHLORIDE 0.9% 50 ML IV PRN ×2 (02:59→15:37)
[2019-03-21] MEDS: HYDROmorphone INJ 2 MG/ML SYR/VIAL IV PRN ×2 (03:06→10:44)
[2019-03-21] MEDS: TRAMADOL HCL 50 MG TABLET PO PRN (07:14)
[2019-03-21 07:39] LABS: Partial Thromboplastin Ratio 1.7
[2019-03-21 07:41] LABS: Partial Thromboplastin Time 47.2 Seconds (21.0-31.0)
[2019-03-21] MEDS: OXYCODONE HCL IR 5 MG TAB (IMMEDIATE RELEASE) PO PRN ×3 (08:15→21:26)
[2019-03-21] MEDS: ONDANSETRON INJ 2 MG/ML 2 ML VIAL IV PRN (10:44)
--- NOTE | 2019-03-21 14:41 | Hospitalist Progress Note ---
Date of Service March 21, 2019 Assessment & Plan (1) Bilateral pulmonary embolism: Present on admission with severe right sided chest pain and SOB Possibly provoked by OCP CTA chest showed multiple bilateral lower lobe and right middle lobe pulmonary emboli. There are associated wedge-shaped opacities within the base of the bilateral lower lobes consistent with pulmonary infarcts. Doppler B/L LE showed no DVT within the right or left lower extremity. Continue heparin drip for now Discussed with patient btw DOACs and warfarin Pt is interested on the DOAC. Major side effect discussed with patient such as abnormal bleeding Called [facility] pharmacy to check for the de jesus. Pt had a very high co-pay deductible Eliquis for 5mg for 60 tabs will be about $400 dollars and Xarelto 15mg for 42 tabs will be about $350, Coumadin $4. Will discuss with pt about the course and possible to consider coumadin since is the cheapest Continue IV Dilaudid with alternating oxycodone ECHO showed no wall motion abnormality and no RV strain was noted on report Case discussed with pulm (No official consult placed) for the pulmonary infarcts as per pulm, no change in the management. Will d/c OCP on discharge, Will defer to PCP to prescribe alternative OCP DVT prophylaxis on Heparin drip Code STATUS Full code Disposition Possible discharge tomorrow Subjective Pt was seen and examined Lying in bed with no distress Pt said that her pain is better today She said that yesterday she had excruciating pain She said that today her pain is only 4-5 out 10 She said that she was able to sleep last night Denies any palpitation and SOB Physical Exam Physical Exam: General- No acute distress Head- atraumatic Eyes- PERRL, EOMI, ENT- oropharynx clear Neck- supple, no JVD Lungs- clear to auscultation Heart- regular rhythm; no murmur Abdomen- normal bowel sounds, soft, nontender Extremities- no calf tenderness Neuro- alert, oriented x 3; PERRL, EOMI; no facial palsy; no dysarthria Skin- warm & dry Results & Data Vital Signs (Past 12 Hours) Vital Signs Temp Pulse Resp BP Pulse Ox 03/21/19 12:00 37.1 C 77 18 118/73 96 03/21/19 02:42 37.1 C 87 19 100/65 99
[2019-03-21] MEDS: LIDOCAINE 5% 1 PATCH TD SCH (18:24)
[2019-03-21] MEDS ORDERED: STOP HEPARIN ORDER SCH (19:30)
[2019-03-21] MEDS: APIXABAN 5 MG TABLET PO SCH (21:00)
[2019-03-22 06:41] LABS: Hematocrit (blood only) 37.1 % (37-47); Hemoglobin 12.3 g/dL (12.0-16.0); Mean Corpuscular Hemoglobin 32.5 pg (25-34); Mean Corpuscular Hgb Conc 33.2 g/dL (32-36); Mean Corpuscular Volume 98.1 fL (80-100); Mean Platelet Volume 9.9 fL (7.4-10.4); Platelet Count 236 K/uL (130-400); RDW Coefficient of Variation 12.6 % (11.5-14.5); RDW Standard Deviation 45.2 fL (36.4-46.3); Red Blood Count 3.78 M/uL (4.2-5.4); White Blood Count 7.05 K/uL (4.8-10.8)
[2019-03-22 07:20] LABS: Creatinine Clr Calc Pharmacy 73.5 ml/min; Est GFR (Non-African American) 75.1
[2019-03-22] MEDS: OXYCODONE HCL IR 5 MG TAB (IMMEDIATE RELEASE) PO PRN (07:52)
[2019-03-22] MEDS: APIXABAN 5 MG TABLET PO SCH (07:55)
--- NOTE | 2019-03-22 10:47 | XCELERA ---
[id number] \\[email or web address]\[id number]_[id number]
--- NOTE | 2019-03-22 11:43 | Hospitalist Progress Note ---
Date of Service March 22, 2019 Assessment & Plan (1) Bilateral pulmonary embolism: Present on admission with severe right sided chest pain and SOB Possibly provoked by OCP CTA chest showed multiple bilateral lower lobe and right middle lobe pulmonary emboli. There are associated wedge-shaped opacities within the base of the bilateral lower lobes consistent with pulmonary infarcts. Doppler B/L LE showed no DVT within the right or left lower extremity. ECHO showed no wall motion abnormality and no RV strain was noted on report Case discussed with pulm (No official consult placed) for the pulmonary infarcts as per pulm, no change in the management. was starting on IV heparin drip Discussed with patient btw DOACs and warfarin Pt is interested on the DOAC. Major side effect discussed with patient such as abnormal bleeding Called [facility] pharmacy to check for the de jesus. Pt had a very high co-pay deductible Eliquis 5mg for 60 tabs will be about $400 dollars and Xarelto 15mg for 42 tabs will be about $350, Coumadin $4. Discussed with pt about the cost and possible to consider coumadin since is the cheapest Pt does not want to do with the coumadin due to periodic lab work Heparin drip was discontinued and transition to Eliquis oral Pain well control with oral oxycodone Will d/c OCP on discharge, Will defer to PCP to prescribe alternative OCP Discussed with pt about fall precaution due to risk of bleeding DVT prophylaxis on Heparin drip/then Eliquis Code STATUS Full code Disposition Discharge home today Follow up with your primary care provider Dr. Mcneill on 03/25 @ 10:25 AM Subjective Pt was seen and examined Lying in bed with no distress Pt said that her pain improves significantly She denies any chest pain, palpitation, dizziness and SOB Physical Exam Physical Exam: General- No acute distress Head- atraumatic Eyes- PERRL, EOMI, ENT- oropharynx clear Neck- supple, no JVD Lungs- clear to auscultation Heart- regular rhythm; no murmur Abdomen- normal bowel sounds, soft, nontender Extremities- no calf tenderness Neuro- alert, oriented x 3; PERRL, EOMI; no facial palsy; no dysarthria Skin- warm & dry Results & Data Vital Signs (Past 12 Hours) Vital Signs Temp Pulse Resp BP Pulse Ox 03/22/19 07:24 37.0 C 86 16 117/69 98 03/22/19 04:00 37.1 C 107 H 20 109/72 95
--- NOTE | 2019-03-23 08:56 | Discharge Summary ---
Date of Service March 22, 2019 Admission HPI Per Admitting Provider History obtained from patient and records. No significant medical history. 2 days history of midsternal, subcostal pleuritic pain with shortness of breath and radiation to the back. No fever, no chills, no cough. No leg swelling. No recent travel/immobilization. At the ER, IV heparin started for pulmonary embolism on CT. No prior episodes, no known family history. Medical History as above Surgical History : Breast implant surgery, gynecologic procedures Family History : Breast cancer, DM Personal/Social history : Non-smoker, occasional EtOH intake, hospital employee Admission Exam Per Admitting Provider GENERAL: Slightly uncomfortable, slightly anxious, looks younger for stated age, no respiratory distress SKIN: Normal color, warm HEENT: [place] palpebral conjunctivae, no ptosis, dry buccal mucosa NECK : Supple, no tenderness CHEST : Decreased breath sounds, no tenderness HEART : RRR, no obvious murmurs ABDOMEN: Soft, nontender EXTREMITIES : No LE swelling/tenderness, no other conspicuous deformities noted NEUROLOGIC : Coherent, no facial asymmetry, no other gross focality Principal Diagnosis Bilateral pulmonary embolism Discharge Exam General- No acute distress Head- atraumatic Eyes- PERRL, EOMI, ENT- oropharynx clear Neck- supple, no JVD Lungs- clear to auscultation Heart- regular rhythm; no murmur Abdomen- normal bowel sounds, soft, nontender Extremities- no calf tenderness Neuro- alert, oriented x 3; PERRL, EOMI; no facial palsy; no dysarthria Skin- warm & dry Discharge Data Allergies Allergy/AdvReac Type Severity Reaction Status Date / Time No Known Allergies Allergy Unknown Verified 03/19/19 22:59 Consultations 03/20/19 02:21 ED Decision to Admit Stat Ordered Studies 03/19/19 23:07 CT angio chest PE protocol Urgent 03/20/19 03:46 US venous doppler LE BI Routine CHEST CTA for PULMONARY ARTERIES CT DOSE: 240.63 mGy.cm HISTORY: Dyspnea TECHNIQUE: Multiaxial CT images of the chest were performed following the intravenous administration of contrast to evaluate the pulmonary arteries. Maximal intensity projection images were also obtained. A dose lowering technique was utilized adhering to the principles of ALARA. COMPARISON STUDY: None. FINDINGS: Normal caliber thoracic aorta with no evidence for dissection. No mediastinal lymphadenopathy. A single enlarged left hilar lymph node measuring 1.1 cm. The heart is normal in size. No pleural or pericardial effusions. Bilateral breast implants are noted. No evidence for right-sided heart strain. Left lower lobe subsegmental pulmonary emboli are noted. There are also multiple pulmonary emboli involving the segmental branches of the right middle lobe and right lower lobe. No suspicious lytic are blastic osseous lesions. The visualized liver and spleen are unremarkable. No pneumothorax. Wedge-shaped groundglass airspace opacities within the base of the bilateral lower lobes, right greater than left. These likely represent pulmonary infarcts. IMPRESSION: 1. Multiple bilateral lower lobe and right middle lobe pulmonary emboli. There are associated wedge-shaped opacities within the base of the bilateral lower lobes consistent with pulmonary infarcts. 2. A single mildly enlarged left hilar lymph node. Electronically signed by: Palomo Patel M.D. 03/20/2019 7:35 AM Dictated: 03/20/19730 Transcribed: 03/20/19730 XR chest 1V portable HISTORY: Dyspnea COMPARISON: None. FINDINGS: The lungs are clear. Cardiac silhouette is normal in size. No pleural effusions. No pneumothorax. IMPRESSION: No acute process. Electronically signed by: Palomo Patel M.D. 03/20/2019 8:13 AM Dictated: 03/20/19812 Transcribed: 03/20/19812 BILATERAL LOWER EXTREMITY VENOUS DOPPLER HISTORY: Pulmonary embolus. Evaluate for DVT. COMPARISON STUDY: None. FINDINGS: There is normal compressibility, flow, and augmentation within the bilateral lower extremity deep venous systems. IMPRESSION: No DVT within the right or left lower extremity. Electronically signed by: Palomo Patel M.D. 03/20/2019 7:08 AM Dictated: 03/20/19707 Transcribed: 03/20/19707 Hospital Course (1) Bilateral pulmonary embolism: Present on admission with severe right sided chest pain and SOB Possibly provoked by OCP CTA chest showed multiple bilateral lower lobe and right middle lobe pulmonary emboli. There are associated wedge-shaped opacities within the base of the bilateral lower lobes consistent with pulmonary infarcts. Doppler B/L LE showed no DVT within the right or left lower extremity. ECHO showed no wall motion abnormality and no RV strain was noted on report Case discussed with pulm (No official consult placed) for the pulmonary infarcts as per pulm, no change in the management. was starting on IV heparin drip Discussed with patient btw DOACs and warfarin Pt is interested on the DOAC. Major side effect discussed with patient such as abnormal bleeding Called [facility] pharmacy to check for the de jesus. Pt had a very high co-pay deductible Eliquis 5mg for 60 tabs will be about $400 dollars and Xarelto 15mg for 42 tabs will be about $350, Coumadin $4. Discussed with pt about the cost and possible to consider coumadin since is the cheapest Pt does not want to do with the coumadin due to periodic lab work Heparin drip was discontinued and transition to Eliquis oral Pain well control with oral oxycodone Will d/c OCP on discharge, Will defer to PCP to prescribe alternative OCP Discussed with pt about fall precaution due to risk of bleeding DVT prophylaxis on Heparin drip/then Eliquis Code STATUS Full code Disposition Discharge home today Follow up with your primary care provider Dr. Mcneill on 03/25 @ 10:25 AM Total Time Total Time Spent Total Time Spent (In Minutes): 35 minutes Total Time Includes: Examination of the Patient, Discharge Planning, Medication Reconciliation, Communication With Other Providers and Other Discharge Plan Discharge Items Patient Disposition: Home - Self-Care Reason For Visit: PE Discharge Diagnosis: Bilateral pulmonary embolism Activity: Resume your previous activity Activity Comment: As tolerated Non-emergency contact: Primary Care Provider Call non-emergency contact if: you have any medication questions and your pain is worsening Follow-up/Referrals: Elke Mcneill MD [Primary Care Provider] - Diet: Regular Addtl Attending Provider Instructions: Follow up with your primary care provider Dr. Mcneill on 03/25 @ 10:25 AM Fall precaution Avoid any fall risk activities Seek medical attention if you develop any abnormal bleeding (such as blood in your stool and urine) Pain control with Tylenol oxycodone to use for severe pain not control with tylenol Do not drive or perform any machine while taking oxycodone Please hold next dose of oxycodone if you become lethargy and drowsy Started on Eliquis 5mg. (You will continue to take 10mg for twice a day for an additional 6 days, then change to 5mg twice a day until instructing by your physician to discontinue it) Medication Instructions: Eliquis Your condition is typically treated with an anticoagulant. Anticoagulants will thin your blood to help prevent new clots. You should take her medication exactly as directed. Never skip a dose. Never take a double dose. If you miss a dose, take it as soon as you remember. Avoid NSAIDs (Motrin, Aleve, Naproxen, Ibuprofen, Advil, Meloxicam,..) due to risks of bleeding Call your Primary Care doctor if you experience any of the following: Swelling or Pain in your leg Sudden, continuous pain deep in a muscle Pain that worsens when you are active or when you stand still for a long time Chest Pain Sudden Shortness of Breath Rapid or pounding heart beat Fainting Dizziness Cough with blood or bloody sputum Sweating more than normal Bruises Heavy or uncontrolled bleeding Blood in your urine, stool or vomit Black or tarry stools Caring for Your Self at Home: Avoid sitting, standing or lying down for long periods without moving your legs and feet When traveling by car, stop to get out and move around at least once every 3 hours On long airplane, train or bus rides, get up and move around when possible If you can't get up, wiggle your toes and tighten your calves to keep your blood moving It is important for you to keep your follow up appointments with your medical provider. Pending Studies at Discharge: No Stand-Alone Forms: My [facility], Smoking Cessation Medications and DC Order Prescriptions: New Eliquis 5 mg Tablet 5 mg PO UD Qty: 74 RF: 0 oxycodone 5 mg Tablet 5 mg PO Q8H PRN (Reason: severe pain) Qty: 10 RF: 0 Discontinued Cryselle (28) 0.3-30 mg-mcg Tablet 1 tab PO DAILY RF: 0 Discharge Orders: Discharge Order (Routine); Ordered 03/22/19 Ordered By: Ray Marie Admission Data Admit Date/Time: 03/20/19 03:08 Attending Provider: Ray Marie Admit Provider: Niels Conway Primary Care Provider: Elke Mcneill Other Providers: Niels Conway Other Interventions: Discharge Summary Assessment (RN) Last Done: 03/22/19 12:38 DC Date/Time DO NOT enter until pt leaves facility: 03/22/19 12:50
== END 2019-03-22 12:50 | disposition home or self-care (01) | DRG 176 ==
LOC: ED 22:30 → 2W 03-20 03:08